=== PATIENT | male | born 1980 | race African-American/Black ===

== ENCOUNTER 2016-10-24 21:28 | Emergency (ER) | payer SELFPAY ==
[~2016-10-24] VITALS: Ht 182.9 cm; Wt 82.0 kg
[2016-10-24] MEDS ORDERED: SODIUM CHLORIDE 0.9% 1,000 ML IV ONE (22:47)
[2016-10-24] MEDS ORDERED: FAMOTIDINE 20MG/2ML VIAL IV STA (22:47)
[2016-10-24 23:12] LABS: BASOPHILS % 1.5 % (0.0-2.0); EOSINOPHILS % 1.6 % (0.0-5.0); HEMATOCRIT. 41.9 % (42.0-52.0); HEMOGLOBIN. 14.5 g/dL (14.0-18.0); LYMPHOCYTES % 25.2 % (20.0-50.0); MEAN CORPUSCULAR VOLUME 89.6 fL (80.0-94.0); MEAN PLATELET VOLUME 8.1 fl (7.4-10.4); MONOCYTES % 7.4 % (2.0-8.0); NEUTROPHILS % 64.3 % (40.0-76.0); PLATELET 170 x1000/uL (130-400); RED BLOOD CELL COUNT 4.68 mill/uL (4.7-6.1)
[2016-10-24 23:18] LABS: CHLORIDE 107 mEq/L (98-107)
[2016-10-24 23:24] LABS: CARBON DIOXIDE 28 mEq/L (21-32)
[2016-10-25 00:50] VITALS: BP 134/62
== END 2016-10-25 00:52 | disposition home or self-care (01) ==
LOC: ER 21:30
DX: K92.2 Gastrointestinal hemorrhage, unspecified (principal); F10.20 Alcohol dependence, uncomplicated; R10.13 Epigastric pain; R53.1 Weakness; R03.0 Elevated blood-pressure reading, without diagnosis of hypertension; F17.210 Nicotine dependence, cigarettes, uncomplicated; F12.10 Cannabis abuse, uncomplicated; F11.10 Opioid abuse, uncomplicated; Y90.9 Presence of alcohol in blood, level not specified
CPT/HCPCS: 36415; 80053; 83690; 85025; 86850; 86900; 86901; 96361; 96374; 99284; J3490; J7030; Z7610